=== PATIENT | female | born 1965 | race African-American/Black ===

== ENCOUNTER 2020-01-11 11:00 | Inpatient (IN) | payer OTHER ==
--- NOTE | 2020-01-11 12:00 | BHS.RME ---
Substance Use & Tx History - Substance Use History Heroin Substance amount: 6-7 bags Frequency of use: Daily Substance route: Inhalation (ex: sniffing or snorting) Date of Last Use: 01/11/20 Other Opiates/Synthetics Substance amount: Percocets 10-325 4 tabs Frequency of use: Daily Substance route: Oral Date of Last Use: 01/11/20 Physical/Psych/Mental Status - Behavior General Behavior: Increased activity (restlessness, agitation) Eye Contact: Normal - Cooperativeness Cooperativeness: Cooperative - Thinking Thought Processes: Tight, Logical, Goal Directed - Physical Health Problems Is patient presently having any pain?: No Does patient presently have any injuries (include location): No Does patient currently have a fever: No Is patient : No COWS - Scale Resting Pulse: 0= ID 80 or Below Sweatin= Chills/Flushing Restless Observation: 3= Extraneous Movement Pupil Size: 1= Pupils >than Normal Bone or Joint Aches: 2= Severe Diffuse Aches Runny Nose/ Eye Tearin= Runny Nose/Eyes GI Upset > 30mins: 2= Nausea/Diarrhea Tremor Observation: 1= Tremor [place], Not Seen Yawning Observation: 2= >3x During Session Anxiety or Irritability: 2=Irritable/Anxious Goose Flesh Skin: 3=Piloerection COWS Score: 19
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
[2020-01-11] MEDS ORDERED: BISMUTH SUBSALICYLATE 262 MG/15 ML BTL PO PRN (14:09)
[2020-01-11] MEDS ORDERED: MAGNESIUM HYDROX 2400MG/30ML ORAL SUSPENSION 30 ML CUP PO PRN (14:09)
[2020-01-11] MEDS ORDERED: MENTHOL/PHENOL 1 EACH UD MM PRN (14:09)
[2020-01-11] MEDS ORDERED: IBUPROFEN 400 MG TABLET (FP) PO PRN (14:09)
[2020-01-11] MEDS ORDERED: MAGNESIUM CITRATE 300 ML BOTTLE PO PRN (14:09)
[2020-01-11] MEDS ORDERED: MAG HYDROX/AL HYDROX/SIMETH 30 ML UNIT-DOSE CUP PO PRN (14:09)
[2020-01-11] MEDS ORDERED: cloNIDine HCL 0.1 MG TABLET PO PRN (14:09)
[2020-01-11] MEDS ORDERED: NICOTINE POLACRILEX 2 MG GUM BUC PRN (14:09)
[2020-01-11] MEDS ORDERED: METHADONE HCL 10 MG TABLET (FOR DETOX USE ONLY) PO ONE (14:09)
[2020-01-11] MEDS ORDERED: ONDANSETRON *ODT* 4 MG TABLET SL ONE (14:09)
[2020-01-11] MEDS ORDERED: ACETAMINOPHEN 325 MG TABLET (FP) PO PRN (14:09)
[2020-01-11 14:25] VITALS: BMI 31.7
[2020-01-11] MEDS: NICOTINE 14 MG/24 HOURS TOPICAL PATCH TD SCH (15:32)
--- NOTE | 2020-01-11 15:59 | EKG ---
Test Reason : Blood Pressure : / mmHG Vent. Rate : 086 BPM Atrial Rate : 086 BPM P-R Int : 192 ms QRS Dur : 076 ms QT Int : 392 ms P-R-T Axes : 063 006 043 degrees QTc Int : 469 ms NORMAL SINUS RHYTHM POSSIBLE LEFT ATRIAL ENLARGEMENT BORDERLINE ECG NO PREVIOUS ECGS AVAILABLE Confirmed by Enrrique Wong ([id number]) on 01/11/2020 3:59:04 PM Referred By: Confirmed By:Enrrique Wong
[2020-01-11 17:47] LABS: HEMATOCRIT 35.8 % (32.4-45.2); HEMOGLOBIN 11.9 GM/dL (10.7-15.3); MCH 33.6 pg (25.7-33.7); MCHC 33.3 g/dl (32.0-36.0); MEAN CELL VOLUME 100.9 fl (80-96); MEAN PLT VOLUME 8.9 fl (7.5-11.1); PLATELET COUNT 258 K/MM3 (134-434); RBC 3.55 M/mm3 (3.60-5.2); RDW 13.5 % (11.6-15.6); WHITE BLOOD COUNT 7.7 K/mm3 (4.0-10.0)
[2020-01-11] MEDS: hydrOXYzine PAMOATE 25 MG CAPSULE (FP) PO SCH ×2 (18:28→22:48)
[2020-01-11] MEDS: ACETAMINOPHEN 325 MG TABLET (FP) PO PRN (18:30)
[2020-01-11] MEDS: METHOCARBAMOL 500 MG TABLET PO PRN (22:45)
[2020-01-11] MEDS: metFORMIN HCL 500 MG TABLET (FP) PO SCH (22:45)
[2020-01-11] MEDS: THIAMINE HCL 100 MG TABLET (FP) PO SCH (22:46)
[2020-01-11] MEDS: MELATONIN 5 MG TABLETS PO SCH (22:48)
[2020-01-12] MEDS: hydrOXYzine PAMOATE 25 MG CAPSULE (FP) PO SCH ×5 (06:23→21:12)
[2020-01-12] MEDS: NAPROXEN 250 MG TABLET PO PRN ×2 (06:24→10:15)
[2020-01-12] MEDS ORDERED: METHADONE (DETOX) 20 MG, METHADONE (DETOX) 5 MG PO ONE (10:00)
[2020-01-12] MEDS: PRENATAL VITAMINS W/ FOLIC ACID TABLET (FP) PO SCH (10:09)
[2020-01-12] MEDS: amLODIPine BESYLATE 10 MG TABLET (FP) PO SCH (10:09)
[2020-01-12] MEDS: metFORMIN HCL 500 MG TABLET (FP) PO SCH ×2 (10:09→21:11)
[2020-01-12] MEDS ORDERED: METHADONE HCL 10 MG TABLET (FOR DETOX USE ONLY) ONE (10:11)
[2020-01-12] MEDS ORDERED: METHADONE HCL 5 MG TABLET (FOR DETOX USE ONLY) ONE (10:12)
[2020-01-12] MEDS: METHOCARBAMOL 500 MG TABLET PO PRN (10:16)
[2020-01-12] MEDS ORDERED: P-EPHED 60MG/TRIPROLIDI 2.5MG TABLET PO PRN (10:38)
[2020-01-12] MEDS: NICOTINE 14 MG/24 HOURS TOPICAL PATCH TD SCH (11:21)
[2020-01-12 12:12] LABS: ALBUMIN 4.2 g/dl (3.4-5.0); BILIRUBIN,TOTAL 0.4 mg/dL (0.2-1); BLOOD UREA NITROGEN 11.9 mg/dL (7-18); CALCIUM 9.7 mg/dL (8.5-10.1); CREATININE 0.7 mg/dL (0.55-1.3); POTASSIUM 4.6 mmol/L (3.5-5.1); TOT PROT 7.6 g/dl (6.4-8.2)
[2020-01-12] MEDS: ACETAMINOPHEN 325 MG TABLET (FP) PO PRN (13:45)
--- NOTE | 2020-01-12 17:18 | PN ---
BHS COWS - Scale Resting Pulse: 1= [place] 81-100 Sweatin= Chills/Flushing Restless Observation: 3= Extraneous Movement Pupil Size: 0= Normal to Room Light Bone or Joint Aches: 4=Acute Joint/Muscle Pain Runny Nose/ Eye Tearin= Nasal Congestion GI Upset > 30mins: 1= Stomach Cramp Tremor Observation of Outstretched Hands: 1= Tremor [place], Not Seen Yawning Observation: 0= None Anxiety or Irritability: 2=Irritable/Anxious Goose Flesh Skin: 0=Smooth Skin COWS Score: 14 BHS Progress Note (SOAP) Subjective: Pt is a 54 y/o female admitted to detox for opiate withdrawal sx. pt c/o chills stomach cramps/"tight as sh-t" leg cramps nasal congestion Objective: 01/12/20 17:17 Vital Signs - 24 hr 01/11/20 01/12/20 20:24 06:08 Temperature 97.3 F L 97.3 F L Pulse Rate 87 83 Respiratory 18 18 Rate Blood Pressure 120/74 110/59 L O2 Sat by Pulse 95 94 L Oximetry (%) Laboratory Tests 01/11/20 01/11/20 01/11/20 14:30 14:30 14:31 WBC 7.7 RBC 3.55 L Hgb 11.9 Hct 35.8 MCV 100.9 H MCH 33.6 MCHC 33.3 RDW 13.5 Plt Count 258 MPV 8.9 Sodium Potassium Chloride Carbon Dioxide Anion Gap BUN Creatinine Est GFR (CKD-EPI)AfAm Est GFR (CKD-EPI)NonAf POC Glucometer Random Glucose Calcium Total Bilirubin AST ALT Alkaline Phosphatase Total Protein Albumin POC Urine HCG, Qual Negative Syphilis Serology Non-reactive COVID-19 ([facility]) 01/11/20 01/11/20 01/11/20 14:41 15:15 20:59 WBC RBC Hgb Hct MCV MCH MCHC RDW Plt Count MPV Sodium Potassium Chloride Carbon Dioxide Anion Gap BUN Creatinine Est GFR (CKD-EPI)AfAm Est GFR (CKD-EPI)NonAf POC Glucometer 104 137 Random Glucose Calcium Total Bilirubin AST ALT Alkaline Phosphatase Total Protein Albumin POC Urine HCG, Qual Syphilis Serology COVID-19 ([facility]) Not detected 01/12/20 08:05 WBC RBC Hgb Hct MCV MCH MCHC RDW Plt Count MPV Sodium 142 Potassium 4.6 Chloride 105 Carbon Dioxide 29 Anion Gap 8 BUN 11.9 Creatinine 0.7 Est GFR (CKD-EPI)AfAm 113.05 Est GFR (CKD-EPI)NonAf 97.54 POC Glucometer Random Glucose 117 H Calcium 9.7 Total Bilirubin 0.4 AST 17 ALT 23 Alkaline Phosphatase 117 Total Protein 7.6 Albumin 4.2 POC Urine HCG, Qual Syphilis Serology COVID-19 ([facility]) covid -19 not detected alert o x 3 nad oob ambulating with cane/steady gait Assessment: 01/12/20 17:18 w/s Plan: continue detox increase po fluids maintain safety
[2020-01-12] MEDS: THIAMINE HCL 100 MG TABLET (FP) PO SCH (21:11)
[2020-01-12] MEDS: MELATONIN 5 MG TABLETS PO SCH (21:12)
[2020-01-12] MEDS: ALBUTEROL SO4 HFA INHALER IH PRN (21:13)
[2020-01-13] MEDS: hydrOXYzine PAMOATE 25 MG CAPSULE (FP) PO SCH ×2 (06:13→09:47)
[2020-01-13] MEDS: PRENATAL VITAMINS W/ FOLIC ACID TABLET (FP) PO SCH (09:47)
[2020-01-13] MEDS: NICOTINE 14 MG/24 HOURS TOPICAL PATCH TD SCH (09:47)
[2020-01-13] MEDS: METHOCARBAMOL 500 MG TABLET PO PRN (09:47)
[2020-01-13] MEDS: metFORMIN HCL 500 MG TABLET (FP) PO SCH (09:47)
[2020-01-13] MEDS: amLODIPine BESYLATE 10 MG TABLET (FP) PO SCH (09:47)
[2020-01-13] MEDS: ALBUTEROL SO4 HFA INHALER IH PRN (09:49)
[2020-01-13] MEDS ORDERED: METHADONE HCL 10 MG TABLET (FOR DETOX USE ONLY) PO ONE (10:00)
[2020-01-13] MEDS ORDERED: hydrOXYzine PAMOATE 25 MG CAPSULE (FP) PO PRN (10:00)
--- NOTE | 2020-01-13 10:05 | PN ---
BHS COWS - Scale Resting Pulse: 2= [place] 101-120 Sweatin= Chills/Flushing Restless Observation: 3= Extraneous Movement Pupil Size: 0= Normal to Room Light Bone or Joint Aches: 4=Acute Joint/Muscle Pain Runny Nose/ Eye Tearin= Nasal Congestion GI Upset > 30mins: 1= Stomach Cramp Tremor Observation of Outstretched Hands: 1= Tremor [place], Not Seen Yawning Observation: 1= 1-2x During Session Anxiety or Irritability: 2=Irritable/Anxious Goose Flesh Skin: 0=Smooth Skin COWS Score: 16 BHS Progress Note (SOAP) Subjective: Pt c/o severe withdrawal sx. Pt was very angry and became very loud at first in stant of asking her as this comic writer walked into her room for rounds-How are you feeling today? Pt loud and demanding for more methadone and questioning why only methadone 30 mg was given to her for a start and threatening to sign out. Director Of Investigations explained to pt our treatment modality and medications for symptom management, reminding her the medications are in her order and if not will order what's nee ded to address her complaints. D/w pt to bring any discomfort to staff for prompt intervention. Pt was able to calm down afterwards and the nurse was updated on patient's needs and complaints. Pt c/o: Anxiety Restlessness/agitation irritability Stomach cramps,denies n/v/d Body aches nasal congestion/runny nose Objective: 01/13/20 10:04 Vital Signs - 24 hr 01/12/20 01/12/20 01/12/20 13:41 17:08 20:18 Temperature 97.5 F L 98.0 F 97.8 F Pulse Rate 98 H 95 H 107 H Respiratory 18 16 18 Rate Blood Pressure 123/67 123/72 124/67 O2 Sat by Pulse 97 95 Oximetry (%) 01/13/20 01/13/20 05:56 09:45 Temperature 97.1 F L 97.1 F L Pulse Rate 83 103 H Respiratory 18 16 Rate Blood Pressure 117/66 134/79 O2 Sat by Pulse 95 Oximetry (%) Laboratory Tests 01/11/20 01/11/20 01/11/20 14:30 14:30 14:31 WBC 7.7 RBC 3.55 L Hgb 11.9 Hct 35.8 MCV 100.9 H MCH 33.6 MCHC 33.3 RDW 13.5 Plt Count 258 MPV 8.9 Sodium Potassium Chloride Carbon Dioxide Anion Gap BUN Creatinine Est GFR (CKD-EPI)AfAm Est GFR (CKD-EPI)NonAf POC Glucometer Random Glucose Calcium Total Bilirubin AST ALT Alkaline Phosphatase Total Protein Albumin POC Urine HCG, Qual Negative Syphilis Serology Non-reactive COVID-19 ([facility]) 01/11/20 01/11/20 01/11/20 14:41 15:15 20:59 WBC RBC Hgb Hct MCV MCH MCHC RDW Plt Count MPV Sodium Potassium Chloride Carbon Dioxide Anion Gap BUN Creatinine Est GFR (CKD-EPI)AfAm Est GFR (CKD-EPI)NonAf POC Glucometer 104 137 Random Glucose Calcium Total Bilirubin AST ALT Alkaline Phosphatase Total Protein Albumin POC Urine HCG, Qual Syphilis Serology COVID-19 ([facility]) Not detected 01/12/20 01/12/20 01/13/20 08:05 21:15 06:28 WBC RBC Hgb Hct MCV MCH MCHC RDW Plt Count MPV Sodium 142 Potassium 4.6 Chloride 105 Carbon Dioxide 29 Anion Gap 8 BUN 11.9 Creatinine 0.7 Est GFR (CKD-EPI)AfAm 113.05 Est GFR (CKD-EPI)NonAf 97.54 POC Glucometer 140 102 Random Glucose 117 H Calcium 9.7 Total Bilirubin 0.4 AST 17 ALT 23 Alkaline Phosphatase 117 Total Protein 7.6 Albumin 4.2 POC Urine HCG, Qual Syphilis Serology COVID-19 ([facility]) covid -19 not detected alert o x 3 uncomfortable due to w/s oob ambulating with cane/steady gait. Assessment: 01/13/20 10:14 moderate to severe withdrawal sx Plan: cont detox increase po fluids maintain safety Actifed prn for nasal sx Robaxin prn for muscle cramps Naprosyn for body aches Start Valium 10 mg po Q4H prn for w/s and anxiety Pt is agreeable to poc.
[2020-01-13] MEDS ORDERED: diazePAM 5 MG TABLET PO PRN (10:33)
[2020-01-13 14:00] VITALS: BP 105/69; PULSE 107; TEMP 97.7
[2020-01-13] MEDS: NAPROXEN 250 MG TABLET PO PRN (15:21)
--- NOTE | 2020-01-13 15:52 | DS ---
[facility] Detox Discharge Summary Admission Date: 01/11/20 Discharge Date: 01/13/20 - History Present History: Opioid Dependence Additional Comments: Pt declined to continue with detox because did not want to be transferred to [address] [place] [address] and wants private room. All efforts to encourage pt to stay in treatment was unsuccessful. Pt met with his counselor and has been referred to CD aftercare at [facility]. Pt reports she has primary care with [facility]. D/w pt the danger of leaving program prematurely. Pt states "I'm fine , I have to go". Pt has been instructed to go to the nearest ER if experiencing any medical condition. Pt also reminded to follow up with his primary care provider for medical management. Pertinent Past History: Hx Kidney Tumor(newly diagnosed per H/P) Hx Asthma Hx DM Hx HTN Chronic Lumber disc Herniation Chronic Osteoarthritis, Knee - Physical Exam Results Vital Signs: Vital Signs Temperature 97.7 F 01/13/20 13:20 Pulse Rate 107 H 01/13/20 13:20 Respiratory Rate 16 01/13/20 13:20 Blood Pressure 105/69 01/13/20 13:20 O2 Sat by Pulse Oximetry (%) 95 01/13/20 13:20 Alert o x 3, denies s/h/i nad oob ambulating wit steady gait with cane. Pertinent Admission Physical Exam Findings: Laboratory Tests 01/11/20 01/11/20 01/11/20 14:30 14:30 14:31 WBC 7.7 RBC 3.55 L Hgb 11.9 Hct 35.8 MCV 100.9 H MCH 33.6 MCHC 33.3 RDW 13.5 Plt Count 258 MPV 8.9 Sodium Potassium Chloride Carbon Dioxide Anion Gap BUN Creatinine Est GFR (CKD-EPI)AfAm Est GFR (CKD-EPI)NonAf POC Glucometer Random Glucose Calcium Total Bilirubin AST ALT Alkaline Phosphatase Total Protein Albumin POC Urine HCG, Qual Negative Syphilis Serology Non-reactive COVID-19 ([facility]) 01/11/20 01/11/20 01/11/20 14:41 15:15 20:59 WBC RBC Hgb Hct MCV MCH MCHC RDW Plt Count MPV Sodium Potassium Chloride Carbon Dioxide Anion Gap BUN Creatinine Est GFR (CKD-EPI)AfAm Est GFR (CKD-EPI)NonAf POC Glucometer 104 137 Random Glucose Calcium Total Bilirubin AST ALT Alkaline Phosphatase Total Protein Albumin POC Urine HCG, Qual Syphilis Serology COVID-19 ([facility]) Not detected 01/12/20 01/12/20 01/13/20 08:05 21:15 06:28 WBC RBC Hgb Hct MCV MCH MCHC RDW Plt Count MPV Sodium 142 Potassium 4.6 Chloride 105 Carbon Dioxide 29 Anion Gap 8 BUN 11.9 Creatinine 0.7 Est GFR (CKD-EPI)AfAm 113.05 Est GFR (CKD-EPI)NonAf 97.54 POC Glucometer 140 102 Random Glucose 117 H Calcium 9.7 Total Bilirubin 0.4 AST 17 ALT 23 Alkaline Phosphatase 117 Total Protein 7.6 Albumin 4.2 POC Urine HCG, Qual Syphilis Serology COVID-19 ([facility]) - Treatment Hospital Course: Discharged Condition Good, Rehab Referral Accepted Patient has Accepted a Rehab Referral to: [facility] - Medication Discharge Medications: Ambulatory Orders Albuterol Sulfate Inhaler - [Ventolin HFA Inhaler -] 2 inh PO Q6H PRN 01/11/20 Amlodipine Besylate [Norvasc -] 10 mg PO DAILY 01/11/20 Metformin HCl [Glucophage] 500 mg PO BID 01/11/20 Paroxetine HCl [Paxil -] 40 mg PO DAILY 01/11/20 Quetiapine Fumarate [Seroquel -] 600 mg PO HS 01/11/20 Ziprasidone [Geodon] 40 mg PO DAILY 01/11/20 - Diagnosis (1) Opioid dependence with withdrawal Status: Acute (2) Asthma Status: Chronic Qualifiers: Asthma severity: unspecified severity (3) Diabetes Status: Chronic Qualifiers: Diabetes mellitus type: type 2 (4) Hypertension Status: Chronic Qualifiers: Hypertension type: essential hypertension Qualified Code(s): I10 - Essential (primary) hypertension (5) Knee osteoarthritis Status: Chronic Qualifiers: Osteoarthritis type: unspecified (6) Lumbar disc herniation Status: Chronic (7) Kidney malignancy Status: Acute - AMA Did Patient Leave Against Medical Advice: Yes
[2020-01-14] MEDS ORDERED: METHADONE (DETOX) 10 MG, METHADONE (DETOX) 5 MG PO ONE (10:00)
[2020-01-15] MEDS ORDERED: METHADONE HCL 10 MG TABLET (FOR DETOX USE ONLY) PO ONE (10:00)
[2020-01-16] MEDS ORDERED: METHADONE HCL 5 MG TABLET (FOR DETOX USE ONLY) PO ONE (06:00)
== END 2020-01-13 15:35 | disposition left against medical advice (07) | DRG 770 ==
LOC: YASAS 11:00 → Y5N DETOX 14:12
PROVIDERS: ADMIT Allergy & Immunology; ATTEND Allergy & Immunology
PROC: HZ2ZZZZ Detoxification Services for Substance Abuse Treatment (ICD-10-PCS; principal; 2020-01-11)
DX: F11.23 Opioid dependence with withdrawal (principal); J45.909 Unspecified asthma, uncomplicated; E11.9 Type 2 diabetes mellitus without complications; I10 Essential (primary) hypertension; M17.0 Bilateral primary osteoarthritis of knee; C64.9 Malignant neoplasm of unspecified kidney, except renal pelvis; Z79.84 Long term (current) use of oral hypoglycemic drugs
CPT/HCPCS: 36415; 80053; 81025; 82962; 85027; 86780; 93005; 93010; J0735; Q0162; U0003

== ENCOUNTER 2021-07-30 17:31 | Inpatient (IN) | payer OTHER ==
[2021-07-30 19:40] VITALS: BMI 36.2
[2021-07-30] MEDS ORDERED: BISMUTH SUBSALICYLATE 524 MG/30 ML PO PRN (20:45)
[2021-07-30] MEDS ORDERED: ACETAMINOPHEN 325 MG TABLET (FP) PO PRN ×2 (20:45)
[2021-07-30] MEDS ORDERED: MENTHOL/PHENOL 1 EACH UD MM PRN (20:45)
[2021-07-30] MEDS ORDERED: IBUPROFEN 400 MG TABLET (FP) PO PRN (20:45)
[2021-07-30] MEDS ORDERED: hydrOXYzine PAMOATE 25 MG CAPSULE (FP) PO PRN (20:45)
[2021-07-30] MEDS ORDERED: LOPERAMIDE HCL 2 MG CAPSULE PO PRN (20:45)
[2021-07-30] MEDS ORDERED: NICOTINE 10 MG CARTRIDGE (INHALER) IH PRN (20:45)
[2021-07-30] MEDS ORDERED: MAGNESIUM HYDROX 2400MG/30ML ORAL SUSPENSION 30 ML CUP PO PRN (20:45)
[2021-07-30] MEDS ORDERED: methaDONE HCL 10 MG TABLET (FOR DETOX USE ONLY) PO ONE (20:45)
[2021-07-30] MEDS ORDERED: MAGNESIUM CITRATE 300 ML BOTTLE PO PRN (20:45)
[2021-07-30] MEDS ORDERED: MAG HYDROX/AL HYDROX/SIMETH 30 ML UNIT-DOSE CUP PO PRN (20:45)
[2021-07-30] MEDS ORDERED: ONDANSETRON *ODT* 4 MG TABLET SL PRN (20:45)
[2021-07-30] MEDS ORDERED: cloNIDine HCL 0.1 MG TABLET PO PRN (20:45)
[2021-07-30] MEDS ORDERED: ACETAMINOPHEN 325 MG TABLET (FP) ONE (21:01)
[2021-07-30] MEDS ORDERED: ALBUTEROL SO4 HFA INHALER IH PRN (22:00)
[2021-07-30] MEDS: MELATONIN 5 MG TABLETS PO SCH (22:14)
[2021-07-30] MEDS: THIAMINE HCL 100 MG TABLET (FP) PO SCH (22:14)
[2021-07-31] MEDS: metFORMIN HCL 500 MG TABLET (FP) PO SCH ×2 (06:15→18:50)
[2021-07-31] MEDS ORDERED: methaDONE HCL 10 MG TABLET (FOR DETOX USE ONLY) ONE (09:41)
[2021-07-31] MEDS ORDERED: diazePAM 5 MG TABLET PO PRN (10:05)
[2021-07-31] MEDS ORDERED: hydrOXYzine PAMOATE 25 MG CAPSULE (FP) PO PRN (10:06)
[2021-07-31] MEDS: METHOCARBAMOL 500 MG TABLET PO PRN ×2 (10:31→22:54)
[2021-07-31] MEDS: amLODIPine BESYLATE 10 MG TABLET (FP) PO SCH (10:31)
[2021-07-31] MEDS: NICOTINE 14 MG/24 HOURS TOPICAL PATCH TD SCH (10:32)
[2021-07-31] MEDS: PRENATAL VITAMINS W/ FOLIC ACID TABLET (FP) PO SCH (10:32)
[2021-07-31 12:52] LABS: ALBUMIN 3.4 g/dl (3.4-5.0); BLOOD UREA NITROGEN 7.5 mg/dL (7-18)
[2021-07-31 12:53] LABS: CALCIUM 9.3 mg/dL (8.5-10.1)
[2021-07-31 12:55] LABS: CREATININE 0.6 mg/dL (0.55-1.3)
[2021-07-31 12:56] LABS: HEMATOCRIT 35.7 % (32.4-45.2); HEMOGLOBIN 11.8 GM/dL (10.7-15.3); MCH 33.1 pg (25.7-33.7); MCHC 33.1 g/dl (32.0-36.0); MEAN PLT VOLUME 9.5 fl (7.5-11.1); PLATELET COUNT 228 10^3/uL (134-434); RBC 3.57 M/mm3 (3.60-5.2); RDW 13.4 % (11.6-15.6); WHITE BLOOD COUNT 7.5 K/mm3 (4.0-10.0)
[2021-07-31 12:57] LABS: BILIRUBIN,TOTAL 0.3 mg/dL (0.2-1); TOT PROT 6.5 g/dl (6.4-8.2)
[2021-07-31] MEDS: THIAMINE HCL 100 MG TABLET (FP) PO SCH (22:54)
[2021-07-31] MEDS: MELATONIN 5 MG TABLETS PO SCH (22:54)
[2021-08-01] MEDS ORDERED: INSULIN SLIDING SCALE (NOVOLOG) 1 VIAL SQ ONE (04:37)
[2021-08-01] MEDS: metFORMIN HCL 500 MG TABLET (FP) PO SCH ×2 (07:10→17:19)
[2021-08-01] MEDS: INSULIN SLIDING SCALE (NOVOLOG) 1 VIAL SQ SCH ×2 (07:16→17:15)
[2021-08-01] MEDS ORDERED: methaDONE HCL 10 MG TABLET (FOR DETOX USE ONLY) PO ONE (10:00)
[2021-08-01 10:07] LABS: SARS-CoV-2 NAA Not Detected (Not Detected)
[2021-08-01] MEDS: PRENATAL VITAMINS W/ FOLIC ACID TABLET (FP) PO SCH (11:02)
[2021-08-01] MEDS: amLODIPine BESYLATE 10 MG TABLET (FP) PO SCH (11:02)
[2021-08-01] MEDS: NICOTINE 14 MG/24 HOURS TOPICAL PATCH TD SCH (12:23)
[2021-08-01] MEDS ORDERED: P-EPHED 60MG/TRIPROLIDI 2.5MG TABLET PO PRN (20:09)
[2021-08-01] MEDS: THIAMINE HCL 100 MG TABLET (FP) PO SCH (23:03)
[2021-08-01] MEDS: METHOCARBAMOL 500 MG TABLET PO PRN (23:03)
[2021-08-01] MEDS: MELATONIN 5 MG TABLETS PO SCH (23:03)
[2021-08-02] MEDS: INSULIN SLIDING SCALE (NOVOLOG) 1 VIAL SQ SCH (06:35)
[2021-08-02] MEDS: metFORMIN HCL 500 MG TABLET (FP) PO SCH (06:35)
[2021-08-02] MEDS ORDERED: INSULIN SLIDING SCALE (NOVOLOG) 1 VIAL SQ ONE (07:01)
[2021-08-02] MEDS ORDERED: methaDONE HCL 10 MG TABLET (FOR DETOX USE ONLY) ONE (09:18)
[2021-08-02] MEDS ORDERED: TRIMETHOBENZAMIDE HCL 200MG/2ML INJ IM PRN (10:07)
[2021-08-02] MEDS: PRENATAL VITAMINS W/ FOLIC ACID TABLET (FP) PO SCH (11:48)
[2021-08-02] MEDS: NICOTINE 14 MG/24 HOURS TOPICAL PATCH TD SCH (11:49)
[2021-08-02] MEDS: amLODIPine BESYLATE 10 MG TABLET (FP) PO SCH (11:49)
[2021-08-02 12:48] VITALS: BP 133/88; PULSE 96; TEMP 97.2
[2021-08-03] MEDS ORDERED: methaDONE HCL 10 MG TABLET (FOR DETOX USE ONLY) PO ONE (10:00)
== END 2021-08-02 14:36 | disposition left against medical advice (07) | DRG 770 ==
LOC: YASAS 17:31 → Y3N 21:13
PROVIDERS: ADMIT Allergy & Immunology; ATTEND Allergy & Immunology
PROC: HZ2ZZZZ Detoxification Services for Substance Abuse Treatment (ICD-10-PCS; principal; 2021-07-30)
DX: F11.23 Opioid dependence with withdrawal (principal); F17.210 Nicotine dependence, cigarettes, uncomplicated; I10 Essential (primary) hypertension; J45.909 Unspecified asthma, uncomplicated; M51.26 Other intervertebral disc displacement, lumbar region; M17.0 Bilateral primary osteoarthritis of knee; E11.9 Type 2 diabetes mellitus without complications; Z79.84 Long term (current) use of oral hypoglycemic drugs; Z85.528 Personal history of other malignant neoplasm of kidney; Z63.4 Disappearance and death of family member; Z91.81 History of falling; Z99.89 Dependence on other enabling machines and devices
CPT/HCPCS: 36415; 80053; 82962; 85027; 86780; 87811; 93005; 93010; C9803; J0735; Q0162; U0003; U0005